=== PATIENT | male | born 1940 | race Caucasian/White ===

== ENCOUNTER 2022-06-09 10:54 | Inpatient (IN) ==
[2022-06-09] MEDS ORDERED: NS 1,000 ML IV 1,000 ML IV SCH (11:23)
[2022-06-09] MEDS ORDERED: DOPAMINE IV PREMIX 400 MG/250 ML 400 MG/250 ML BAG IV PRN (11:39)
[2022-06-09] MEDS ORDERED: NS 1,000 ML IV 1,000 ML ONE (11:40)
[2022-06-09] MEDS ORDERED: DOPAMINE IV PREMIX 400 MG/250 ML 400 MG/250 ML BAG IV ONE (11:40)
[2022-06-09 12:04] VITALS: BMI 27.4
[2022-06-09 12:24] LABS: BASOPHILS # (AUTO) 0.1 X10^3/uL (0.0-0.1); BASOPHILS % (AUTO) 0.6 % (0.2-1.0); EOSINOPHILS # (AUTO) 0.1 x10^3/uL (0.0-0.2); EOSINOPHILS % (AUTO) 0.3 % (0.9-2.9); HEMATOCRIT 43.6 % (42.0-54.0); HEMOGLOBIN 14.5 g/dL (13.5-18.0); LYMPHOCYTES # (AUTO) 2.9 X10^3/uL (1.3-2.9); LYMPHOCYTES % (AUTO) 11.9 % (21.0-51.0); MEAN CORPUSCULAR HEMOGLOBIN 30.1 pg (27.0-34.0); MEAN CORPUSCULAR HGB CONC 33.2 g/dL (33.0-35.0); MEAN CORPUSCULAR VOLUME 90.9 fL (80.0-100.0); MEAN PLATELET VOLUME 8.8 fL (7.4-11.0); MONOCYTES # (AUTO) 2.7 x10^3/uL (0.3-0.8); NEUTROPHILS # (AUTO) 18.3 x10^3/uL (2.2-4.8); NEUTROPHILS % (AUTO) 76.2 % (42.0-75.0); WHITE BLOOD COUNT 24.1 X10^3/uL (3.6-10.0)
[2022-06-09 12:37] LABS: VALPROIC ACID 32.8 ug/mL (50-100)
[2022-06-09 12:38] LABS: BAND NEUTROPHILS % 3 % (0-10)
[2022-06-09 12:39] LABS: PLATELET MORPHOLOGY COMMENT NORMAL (NORMAL)
[2022-06-09 12:41] LABS: LACTIC ACID 1.9 mmol/L (0.4-2.0)
[2022-06-09 12:49] LABS: BILIRUBIN,URINE 1+ (NEGATIVE); BLOOD/HEMOGLOBIN,URINE 1+ (NEGATIVE); GLUCOSE, URINE NEGATIVE (NEGATIVE); KETONES,URINE 1+ (NEGATIVE); LEUKOCYTE ESTERASE ,URINE 1+ (NEGATIVE); NITRITES,URINE NEGATIVE (NEGATIVE); PROTEIN,URINE 2+ (NEGATIVE); UROBILINOGEN,URINE 1+ (NORMAL)
[2022-06-09 12:55] LABS: APPEARANCE,URINE SLIGHTLY HAZY (CLEAR); BACTERIA,URINE 1+ /HPF (NEGATIVE); COLOR,URINE AMBER (YELLOW); HYALINE CASTS, URINE MODERATE /LPF (NEGATIVE); RBC,URINE 0-2 /HPF (0-3); SQUAMOUS EPITHELIAL CELL,UR FEW /HPF (NEGATIVE)
[2022-06-09 12:57] LABS: ALANINE AMINOTRANSFERASE 49 Units/L (12-78); ALBUMIN 2.4 g/dL (3.4-5.0); ALKALINE PHOSPHATASE 153 Units/L (46-116); ASPARTATE AMINO TRANSFERASE 70 Units/L (15-37); BLOOD UREA NITROGEN 127 mg/dL (7-18); CALCIUM 9.4 mg/dL (8.5-10.1); CARBON DIOXIDE 26.1 mmol/L (21-32); COR CA(FOR HYPOALB) 10.7 mg/dL (8.5-10.1); CREATININE 4.43 mg/dL (0.70-1.30); TOTAL PROTEIN 7.6 g/dL (6.4-8.2); eGFR NON BLACK RACES 14 (>60)
[2022-06-09 13:03] LABS: CHLORIDE 122 mmol/L (98-107); SODIUM 163 mmol/L (136-145)
[2022-06-09] MEDS ORDERED: D5W 1,000 ML IV 1,000 ML IV ONE (13:12)
[2022-06-09] MEDS: D5W 1,000 ML IV 1,000 ML IV SCH ×2 (13:25→18:00)
[2022-06-09] MEDS: LEVOPHED 8 MG/250 ML IV *PREMIX 8 MG/250 ML PLAST..BAG IV PRN (13:26)
[2022-06-09] MEDS: MERREM VIAL 500 MG in D5W 100 ML IV 100 ML IV SCH ×2 (13:49→20:17)
[2022-06-09] MEDS ORDERED: LEVAQUIN PREMIX IV 750 MG 750 MG/150 ML BAG IV ONE (14:00)
--- NOTE | 2022-06-09 18:19 | RAD ---
HISTORYHypotensionSTUDYAP [id number]/28/2022, March 03, 2022FINDINGSThere is an indistinct area of parenchymal density in the left lower lobe which was not present on March 03, 2022. The heart and lungs are normal otherwise. There is no pleural fluid component.IMPRESSIONSmall focal area of infiltrate/pneumonia or atelectasis in the left lower lung.Electronically signed by: SHERIN ELIAS (Jun 09, 2022 18:16:58)
[2022-06-10] MEDS: D5W 1,000 ML IV 1,000 ML IV SCH ×5 (00:34→21:36)
[2022-06-10] MEDS: LEVOPHED 8 MG/250 ML IV *PREMIX 8 MG/250 ML PLAST..BAG IV PRN (01:41)
[2022-06-10 04:57] LABS: BASOPHILS # (AUTO) 0.1 X10^3/uL (0.0-0.1); BASOPHILS % (AUTO) 0.3 % (0.2-1.0); EOSINOPHILS # (AUTO) 0.1 x10^3/uL (0.0-0.2); EOSINOPHILS % (AUTO) 0.7 % (0.9-2.9); HEMATOCRIT 38.7 % (42.0-54.0); HEMOGLOBIN 12.9 g/dL (13.5-18.0); LYMPHOCYTES # (AUTO) 2.6 X10^3/uL (1.3-2.9); LYMPHOCYTES % (AUTO) 12.7 % (21.0-51.0); MEAN CORPUSCULAR HEMOGLOBIN 29.7 pg (27.0-34.0); MEAN CORPUSCULAR HGB CONC 33.2 g/dL (33.0-35.0); MEAN CORPUSCULAR VOLUME 89.6 fL (80.0-100.0); MEAN PLATELET VOLUME 8.7 fL (7.4-11.0); MONOCYTES # (AUTO) 2.6 x10^3/uL (0.3-0.8); MONOCYTES % (AUTO) 12.4 % (0.0-13.0); NEUTROPHILS # (AUTO) 15.3 x10^3/uL (2.2-4.8); NEUTROPHILS % (AUTO) 73.9 % (42.0-75.0); RED BLOOD COUNT 4.32 X10^6/uL (4.7-6.0); RED CELL DISTRIBUTION WIDTH 13.9 % (11.6-16.5); WHITE BLOOD COUNT 20.6 X10^3/uL (3.6-10.0)
[2022-06-10 05:03] LABS: CALCIUM 8.6 mg/dL (8.5-10.1); CARBON DIOXIDE 24.2 mmol/L (21-32); COR CA(FOR HYPOALB) 10.2 mg/dL (8.5-10.1); CREATININE 2.9 mg/dL (0.70-1.30); TOTAL PROTEIN 6.6 g/dL (6.4-8.2)
[2022-06-10] MEDS: MERREM VIAL 500 MG in D5W 100 ML IV 100 ML IV SCH ×2 (08:28→20:05)
--- NOTE | 2022-06-10 09:02 | DR.H&P ---
H&P History & Physical for Day of: H&P Date: 06/09/22 Chief Complaint Chief Complaint: Altered mental status Allergies Allergies Allergy/AdvReac Type Severity Reaction Status Date / Time No Known Drug Allergies Allergy Verified 03/03/22 17:00 History of Present Illness History of Present Illness: This is a 81-year-old white male who is a resident at [facility]. He is a patient of mine and is well-known to me. I was called about him 4 days ago from the alf when he had some kind of acute decompensation and it was reported that he has a bluish coloring in the right arm. Because of that we sent him to the emergency department for further work-up. I did a work-up and found that his white blood cell count was slightly over 20,000. They were unable to find any source of infection at that time. I had already previously started him on oral doxycycline because of the bad cough he had reported by the alf nurses. Patient was sent back to the alf in stable condition. He was already on the oral doxycycline so we kept him on it. The following day the patient was not doing well according to the alf nurses so I directed them to send him to the emergency department for further evaluation and treatment. Patient was not admitted Thursday afternoon to the hospital and his condition did not improve over the weekend. This morning the patient was brought to my office for examination I found that he was hypotensive with a blood pressure of 85/55. His heart rate was 88. We were unable to get a temperature or pulse ox on him today. His respirations were noted to be at 20. Because of this I direct admitted him to the ICU and started a sepsis work-up on him and routine labs and check cardiac enzymes and EKGs. Past Medical History Past Medical History: Alzheimers, Arthritis, COPD, Dementia, Depression and Diabetes Past Surgical History Surgical History: CABG/Valve Surgery Family History Family Medical History: CA and Coronary Artery Disease Social History Does patient currently use any type of tobacco product: No Have you used tobacco products in the last 12 months: Yes Type of Tobacco Use: Cigarettes Alcohol Use: None Drug Use: None Medications Home Medications: No Known Drug Allergies Allergy (Verified 03/03/22 17:00) CONTINUE taking the following medications albuterol sulfate 90 mcg/actuation aerosol inhaler (ProAir HFA) 2 puff inhalation BID 06/09/22 [History] divalproex 500 mg tablet,delayed release (Depakote) 500 mg PO BID 06/09/22 [History] donepezil 5 mg tablet 5 mg PO QHS 06/09/22 [History] doxycycline hyclate 100 mg tablet 100 mg PO BID 06/09/22 [History] fluticasone propionate 50 mcg/actuation nasal spray,suspension 1 spray intranasal QDAY 06/09/22 [History] lisinopril 5 mg tablet 5 mg PO QDAY 06/09/22 [History] loratadine 10 mg tablet (Claritin) 10 mg PO DAILY 06/09/22 [History] meclizine 25 mg tablet 25 mg PO QDAY 06/09/22 [History] melatonin 10 mg tablet 10 mg PO HS PRN 06/09/22 [History] meloxicam 7.5 mg tablet 7.5 mg PO QDAY 06/09/22 [History] olanzapine 15 mg tablet (Zyprexa) 15 mg PO QDAY 06/09/22 [History] sertraline 50 mg tablet (Zoloft) 50 mg PO QDAY 06/09/22 [History] Labs Result Diagrams: 06/10/22 04:14 06/10/22 04:14 Labs: Laboratory WBC 20.6 X10^3/uL (3.6-10.0) H 06/10/22 04:14 RBC 4.32 X10^6/uL (4.7-6.0) L 06/10/22 04:14 Hgb 12.9 g/dL (13.5-18.0) L 06/10/22 04:14 Hct 38.7 % (42.0-54.0) L 06/10/22 04:14 MCV 89.6 fL (80.0-100.0) 06/10/22 04:14 MCH 29.7 pg (27.0-34.0) 06/10/22 04:14 MCHC 33.2 g/dL (33.0-35.0) 06/10/22 04:14 RDW 13.9 % (11.6-16.5) 06/10/22 04:14 Plt Count 523 X10^3/uL (150.0-450.0) H 06/10/22 04:14 Plt Count Comment Increased (ADEQUATE) 06/09/22 12:05 MPV 8.7 fL (7.4-11.0) 06/10/22 04:14 Neut % (Auto) 73.9 % (42.0-75.0) 06/10/22 04:14 Lymph % (Auto) 12.7 % (21.0-51.0) L 06/10/22 04:14 [place] % (Auto) 12.4 % (0.0-13.0) 06/10/22 04:14 Eos % (Auto) 0.7 % (0.9-2.9) L 06/10/22 04:14 Baso % (Auto) 0.3 % (0.2-1.0) 06/10/22 04:14 Neut # (Auto) 15.3 x10^3/uL (2.2-4.8) H 06/10/22 04:14 Lymph # (Auto) 2.6 X10^3/uL (1.3-2.9) 06/10/22 04:14 [place] # (Auto) 2.6 x10^3/uL (0.3-0.8) H 06/10/22 04:14 Eos # (Auto) 0.1 x10^3/uL (0.0-0.2) 06/10/22 04:14 Baso # (Auto) 0.1 X10^3/uL (0.0-0.1) 06/10/22 04:14 Absolute Nucleated RBC 0.1 /100WBC 06/10/22 04:14 Total Counted 100 06/09/22 12:05 Neutrophils % (Manual) 81 % (39-76) H 06/09/22 12:05 Band Neutrophils % 3 % (0-10) 06/09/22 12:05 Lymphocytes % (Manual) 10 % (13-43) L 06/09/22 12:05 Monocytes % (Manual) 5 % (4-9) 06/09/22 12:05 Eosinophils % (Manual) 1 % (0-6) 06/09/22 12:05 Plt Morphology Comment Normal (NORMAL) 06/09/22 12:05 RBC Morphology Normal (NORMAL) 06/09/22 12:05 Sodium 154 mmol/L (136-145) H* 06/10/22 04:14 Corrected Sodium 155 mmol/L (136-145) H 06/10/22 04:14 Potassium 3.6 mmol/L (3.5-5.1) 06/10/22 04:14 Chloride 118 mmol/L (98-107) H* 06/10/22 04:14 Carbon Dioxide 24.2 mmol/L (21-32) 06/10/22 04:14 BUN 107 mg/dL (7-18) H 06/10/22 04:14 Creatinine 2.90 mg/dL (0.70-1.30) H 06/10/22 04:14 Est GFR (MDRD) Af Amer 27 (>60) L 06/10/22 04:14 Est GFR (MDRD) Non-Af 22 (>60) L 06/10/22 04:14 Glucose 143 mg/dL (65-99) H 06/10/22 04:14 Lactic Acid 1.9 mmol/L (0.4-2.0) 06/09/22 12:05 Calcium 8.6 mg/dL (8.5-10.1) 06/10/22 04:14 Corrected Calcium 10.2 mg/dL (8.5-10.1) H 06/10/22 04:14 Total Bilirubin 0.50 mg/dL (0.2-1.0) 06/10/22 04:14 AST 59 Units/L (15-37) H 06/10/22 04:14 ALT 40 Units/L (12-78) 06/10/22 04:14 Alkaline Phosphatase 139 Units/L (46-116) H 06/10/22 04:14 Creatine Kinase 777 Units/L (39-308) H 06/10/22 04:14 Troponin I High Sens 165.0 ng/L (4.0-60.0) H* 06/09/22 23:40 C-Reactive Protein 176.50 mg/L (0-3.0) H 06/10/22 04:14 B-Natriuretic Peptide 52.8 pg/mL (0-79) 06/10/22 04:14 Total Protein 6.6 g/dL (6.4-8.2) 06/10/22 04:14 Albumin 2.0 g/dL (3.4-5.0) L 06/10/22 04:14 Globulin 4.6 g/dL (2.5-4.5) H 06/10/22 04:14 Albumin/Globulin Ratio 0.4 Ratio (1.1-2.1) L 06/10/22 04:14 Specimen Type Catherized urine 06/09/22 12:15 Urine Color Valerie (YELLOW) 06/09/22 12:15 Urine Appearance Slightly hazy (CLEAR) 06/09/22 12:15 Urine pH 5.0 (5.0 - 8.0) 06/09/22 12:15 Ur Specific [place] 1.025 (1.000-1.030) 06/09/22 12:15 Urine Protein 2+ (NEGATIVE) 06/09/22 12:15 Urine Glucose (UA) Negative (NEGATIVE) 06/09/22 12:15 Urine Ketones 1+ (NEGATIVE) 06/09/22 12:15 Urine Blood 1+ (NEGATIVE) 06/09/22 12:15 Urine Nitrite Negative (NEGATIVE) 06/09/22 12:15 Urine Bilirubin 1+ (NEGATIVE) 06/09/22 12:15 Urine Urobilinogen 1+ (NORMAL) 06/09/22 12:15 Ur Leukocyte Esterase 1+ (NEGATIVE) 06/09/22 12:15 Urine RBC 0-2 /HPF (0-3) 06/09/22 12:15 Urine WBC 3-5 /HPF (0-5) 06/09/22 12:15 Ur Squamous Epith Cells Few /HPF (NEGATIVE) 06/09/22 12:15 Amorphous Sediment 1+ /HPF (NEGATIVE) 06/09/22 12:15 Urine Bacteria 1+ /HPF (NEGATIVE) 06/09/22 12:15 Hyaline Casts Moderate /LPF (NEGATIVE) 06/09/22 12:15 Ur Culture Indicated? Yes/culture set up 06/09/22 12:15 Valproic Acid 32.8 ug/mL (50-100) L 06/09/22 12:05 SARS-CoV-2 (PCR) Negative (NEGATIVE) 06/09/22 12:20 Influenza Type A (PCR) Negative (NEGATIVE) 06/09/22 12:20 Influenza Type B (PCR) Negative (NEGATIVE) 06/09/22 12:20 RSV (PCR) Negative (NEGATIVE) 06/09/22 12:20 Review of Systems Constitutional: No Symptoms Reported Eyes: No Symptoms Reported ENT: No Symptoms Reported Respiratory: Cough Cardiovascular: No Symptoms Reported Gastrointestinal: No Symptoms Reported Genitourinary: No Symptoms Reported Musculoskeletal: No Symptoms Reported Skin: Wound Neurological: No Symptoms Reported Physical Exam Vital Signs: Temperature 98.6 F Pulse Rate 97 Respiratory Rate 21 Blood Pressure [Right Arm] 109/57 Blood Pressure 115/56 O2 Sat by Pulse Oximetry 100 Oriented: Not Oriented Eyes: Normal Ear: Normal Nose: Normal Throat: Normal Respiratory: Rhonchi Throughout Cardiovascular: Normal : Normal Auscultation: Bowel Sounds: Normal Palpation: Normal Tenderness: Normal Skin: Decreased Turgur and Wound Musculoskeletal: Normal Psychiatric: Other Mood Description: Labile Affect: Flat Speech Pattern: Aphasic Assessment/Plan (1) Hypotension: Status: Acute Plan: I will start the patient on normal saline 125 cc an hour. Follow-up with CMP when available. (2) Leukocytosis: Status: Acute Plan: I will start the patient empirically on Levaquin and Zosyn IV. (3) Altered mental status: Qualifiers: Altered mental status type: transient alteration of awareness Qualified Code(s): R40.4 - Transient alteration of awareness Status: Acute Plan: Follow-up labs, chest x-ray and EKGs. (4) Alzheimer's dementia with behavioral disturbance: Status: Acute (5) COPD (chronic obstructive pulmonary disease): Status: Acute (6) Diabetes mellitus type 2 in nonobese: Status: Acute Plan: Sliding scale regular insulin per protocol. (7) Coronary artery disease: Status: Acute (8) History of CVA (cerebrovascular accident): Status: Acute (9) Dyslipidemia: Status: Acute (10) GERD (gastroesophageal reflux disease): Status: Acute (11) History of essential hypertension: Status: Acute Plan: Monitor blood pressure/heart rate. (12) Arthritis: Status: Acute (13) Cognitive communication deficit: Status: Acute (14) BPH (benign prostatic hyperplasia): Status: Acute Review H&P Reviewed: Yes Patient was examined?: Yes
--- NOTE | 2022-06-10 10:21 | PCM.PROG ---
Progress Note Progress Note for Day of Date of Exam: 06/10/22 Subjective Subjective: After the patient was admitted yesterday he was still hypotensive and his blood pressure started decreasing. I started him on a dopamine drip per protocol and waiting on his labs to come back. We had end up going up to the max dose of dopamine was labs are pending and once it came back showed a creatinine of nearly 4.5. Also his sodium was found to be 163. I change his IV fluid from normal saline to D5W at 125 cc an hour. We stopped the dopamine after his blood pressure remained low and his heart rate went up and changed to Levophed. While he was on Levophed we ended up having to max it out as well with a blood pressure in the 60s to 70s over 50s so gave him a bolus of D5W 500 cc and his blood pressure and heart rate responded to that appropriately. After that I gave him another 500 cc bolus of D5W and his heart rate came down under 100 and his blood pressure has since come up to over 100 systolic and over 70s diastolic. He received fluids through the night and 125 cc an hour of D5W. I stopped his IV Zosyn because has a large amount of sodium minds and changed to meropenem and continue him on Levaquin. ID consult pharmacy for renal dosing while we are awaiting blood cultures and chest x-ray to return. His chest x-ray did come back showing a left lower lobe infiltrate consistent with a pneumonia. The nurses found some skin tears on his body and they collected those as well some did have some minor drainage. Currently I am holding all his p.o. medications as he is not responsive enough to take him. Also noted his troponins have slightly been trending up but given his renal status that will be falsely elevated as he is not clearing them appropriately. He does have some inferior ischemic changes on his EKG. I do not see any ST elevation that would indicate an acute AR. I will consult Dr. Alexander to see him tomorrow so he can evaluate his EKGs and to see if he thinks he needs an expedited cardiac work-up while we are treating his acute dehydration, hypernatremia and pneumonia. Also noted he does have small positive leukocyte esterase in the urine and we will follow-up the culture when it comes back as well. Greater than 45 minutes was spent with the patient this morning. Past Medical Family Social History Allergies: Allergies No Known Drug Allergies Allergy (Verified 03/03/22 17:00) Review of Systems ROS: No change since H&P Vital Signs and I&O's Vital Signs: Temperature 98.6 F Pulse Rate 100 Respiratory Rate 22 Blood Pressure [Right Arm] 109/57 Blood Pressure 151/90 O2 Sat by Pulse Oximetry 98 Intake and Output: Intake & Output 06/07/22 06/08/22 06/09/22 06/10/22 11:59 11:59 11:59 11:59 Intake Total 3039 / 3039 Output Total 1275 / 1275 Balance 1764 / 1764 Physical Exam Oriented: Not Oriented Eyes: Normal Ear: Normal Nose: Normal Throat: Normal Respiratory: Right, Left and Rhonchi Cardiovascular: Normal : Normal Auscultation: Bowel Sounds: Normal Tenderness: Normal Skin: Decreased Turgur and Wound Musculoskeletal: Normal Psychiatric: Other Mood Description: Labile Affect: Flat Speech Pattern: Aphasic Laboratory and Diagnostics Result Diagrams: 06/10/22 04:14 06/10/22 04:14 Labs: Laboratory WBC 20.6 X10^3/uL (3.6-10.0) H 06/10/22 04:14 RBC 4.32 X10^6/uL (4.7-6.0) L 06/10/22 04:14 Hgb 12.9 g/dL (13.5-18.0) L 06/10/22 04:14 Hct 38.7 % (42.0-54.0) L 06/10/22 04:14 MCV 89.6 fL (80.0-100.0) 06/10/22 04:14 MCH 29.7 pg (27.0-34.0) 06/10/22 04:14 MCHC 33.2 g/dL (33.0-35.0) 06/10/22 04:14 RDW 13.9 % (11.6-16.5) 06/10/22 04:14 Plt Count 523 X10^3/uL (150.0-450.0) H 06/10/22 04:14 Plt Count Comment Increased (ADEQUATE) 06/09/22 12:05 MPV 8.7 fL (7.4-11.0) 06/10/22 04:14 Neut % (Auto) 73.9 % (42.0-75.0) 06/10/22 04:14 Lymph % (Auto) 12.7 % (21.0-51.0) L 06/10/22 04:14 [place] % (Auto) 12.4 % (0.0-13.0) 06/10/22 04:14 Eos % (Auto) 0.7 % (0.9-2.9) L 06/10/22 04:14 Baso % (Auto) 0.3 % (0.2-1.0) 06/10/22 04:14 Neut # (Auto) 15.3 x10^3/uL (2.2-4.8) H 06/10/22 04:14 Lymph # (Auto) 2.6 X10^3/uL (1.3-2.9) 06/10/22 04:14 [place] # (Auto) 2.6 x10^3/uL (0.3-0.8) H 06/10/22 04:14 Eos # (Auto) 0.1 x10^3/uL (0.0-0.2) 06/10/22 04:14 Baso # (Auto) 0.1 X10^3/uL (0.0-0.1) 06/10/22 04:14 Absolute Nucleated RBC 0.1 /100WBC 06/10/22 04:14 Total Counted 100 06/09/22 12:05 Neutrophils % (Manual) 81 % (39-76) H 06/09/22 12:05 Band Neutrophils % 3 % (0-10) 06/09/22 12:05 Lymphocytes % (Manual) 10 % (13-43) L 06/09/22 12:05 Monocytes % (Manual) 5 % (4-9) 06/09/22 12:05 Eosinophils % (Manual) 1 % (0-6) 06/09/22 12:05 Plt Morphology Comment Normal (NORMAL) 06/09/22 12:05 RBC Morphology Normal (NORMAL) 06/09/22 12:05 Sodium 154 mmol/L (136-145) H* 06/10/22 04:14 Corrected Sodium 155 mmol/L (136-145) H 06/10/22 04:14 Potassium 3.6 mmol/L (3.5-5.1) 06/10/22 04:14 Chloride 118 mmol/L (98-107) H* 06/10/22 04:14 Carbon Dioxide 24.2 mmol/L (21-32) 06/10/22 04:14 BUN 107 mg/dL (7-18) H 06/10/22 04:14 Creatinine 2.90 mg/dL (0.70-1.30) H 06/10/22 04:14 Est GFR (MDRD) Af Amer 27 (>60) L 06/10/22 04:14 Est GFR (MDRD) Non-Af 22 (>60) L 06/10/22 04:14 Glucose 143 mg/dL (65-99) H 06/10/22 04:14 Lactic Acid 1.9 mmol/L (0.4-2.0) 06/09/22 12:05 Calcium 8.6 mg/dL (8.5-10.1) 06/10/22 04:14 Corrected Calcium 10.2 mg/dL (8.5-10.1) H 06/10/22 04:14 Total Bilirubin 0.50 mg/dL (0.2-1.0) 06/10/22 04:14 AST 59 Units/L (15-37) H 06/10/22 04:14 ALT 40 Units/L (12-78) 06/10/22 04:14 Alkaline Phosphatase 139 Units/L (46-116) H 06/10/22 04:14 Creatine Kinase 777 Units/L (39-308) H 06/10/22 04:14 Troponin I High Sens 165.0 ng/L (4.0-60.0) H* 06/09/22 23:40 C-Reactive Protein 176.50 mg/L (0-3.0) H 06/10/22 04:14 B-Natriuretic Peptide 52.8 pg/mL (0-79) 06/10/22 04:14 Total Protein 6.6 g/dL (6.4-8.2) 06/10/22 04:14 Albumin 2.0 g/dL (3.4-5.0) L 06/10/22 04:14 Globulin 4.6 g/dL (2.5-4.5) H 06/10/22 04:14 Albumin/Globulin Ratio 0.4 Ratio (1.1-2.1) L 06/10/22 04:14 Specimen Type Catherized urine 06/09/22 12:15 Urine Color Valerie (YELLOW) 06/09/22 12:15 Urine Appearance Slightly hazy (CLEAR) 06/09/22 12:15 Urine pH 5.0 (5.0 - 8.0) 06/09/22 12:15 Ur Specific [place] 1.025 (1.000-1.030) 06/09/22 12:15 Urine Protein 2+ (NEGATIVE) 06/09/22 12:15 Urine Glucose (UA) Negative (NEGATIVE) 06/09/22 12:15 Urine Ketones 1+ (NEGATIVE) 06/09/22 12:15 Urine Blood 1+ (NEGATIVE) 06/09/22 12:15 Urine Nitrite Negative (NEGATIVE) 06/09/22 12:15 Urine Bilirubin 1+ (NEGATIVE) 06/09/22 12:15 Urine Urobilinogen 1+ (NORMAL) 06/09/22 12:15 Ur Leukocyte Esterase 1+ (NEGATIVE) 06/09/22 12:15 Urine RBC 0-2 /HPF (0-3) 06/09/22 12:15 Urine WBC 3-5 /HPF (0-5) 06/09/22 12:15 Ur Squamous Epith Cells Few /HPF (NEGATIVE) 06/09/22 12:15 Amorphous Sediment 1+ /HPF (NEGATIVE) 06/09/22 12:15 Urine Bacteria 1+ /HPF (NEGATIVE) 06/09/22 12:15 Hyaline Casts Moderate /LPF (NEGATIVE) 06/09/22 12:15 Ur Culture Indicated? Yes/culture set up 06/09/22 12:15 Valproic Acid 32.8 ug/mL (50-100) L 06/09/22 12:05 SARS-CoV-2 (PCR) Negative (NEGATIVE) 06/09/22 12:20 Influenza Type A (PCR) Negative (NEGATIVE) 06/09/22 12:20 Influenza Type B (PCR) Negative (NEGATIVE) 06/09/22 12:20 RSV (PCR) Negative (NEGATIVE) 06/09/22 12:20 Radiology Reviewed: Yes EKG Reviewed: Yes Compared to prior EKG Dated: 06/09/22 Rate: 90 Rhythm: NSR ST: Inf and Ischemia Plan (1) Left lower lobe pneumonia: Status: Acute Plan: Of the meropenem and IV Levaquin. Renally dosed per pharmacy. Follow-up sputum and blood cultures when available. (2) Hypotension: Status: Acute Narrative Support Text: The patient's blood pressure has been coming up he has been titrated down off the maximum amount of Levophed since last night and we will continue to titrated off as tolerated by the patient. We will try to keep his blood pressure 110/70 before stopping the Levophed. Plan: Taper off Levophed drip per protocol. Try to maintain blood pressure 110/70. (3) Urinary tract infection: Status: Acute Plan: Continue IV meropenem and IV Levaquin renally dosed per pharmacy. Follow-up with urine culture and sensitivity when available. (4) Abnormal EKG: Status: Acute Narrative Support Text: The patient has inferior his hemic EKG changes with ST depression. Also noted to have elevated high-sensitivity troponin levels as well. I suspect the troponins are falsely elevated given his renal clearance at this time. Plan: Consult cardiology, Dr. Alexander tomorrow when he is available. (5) Cardiac enzymes elevated: Status: Acute Plan: Cardiology consultation with Dr. Alexander in the morning. I am also going to start the patient on heparin drip per protocol given his elevated cardi ac enzymes. (6) Leukocytosis: Status: Acute Narrative Support Text: Suspect the leukocytosis the patient has is from left lower lobe pneumonia. We will continue him on IV antibiotics which are Levaquin and Merrem. Plan: Continue IV meropenem and Levaquin per pharmacy. (7) Altered mental status: Status: Acute Qualifiers: Altered mental status type: transient alteration of awareness Qualified Code(s): R40.4 - Transient alteration of awareness Plan: Monitor for improvement. 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 (9) COPD (chronic obstructive pulmonary disease): Status: Acute (10) Diabetes mellitus type 2 in nonobese: Status: Acute Plan: Sliding scale regular insulin per protocol. (11) Coronary artery disease: Status: Acute Plan: I will consult Dr. Alexander, cardiology when he is available tomorrow. (12) History of CVA (cerebrovascular accident): Status: Acute (13) Dyslipidemia: Status: Acute (14) GERD (gastroesophageal reflux disease): Status: Acute (15) History of essential hypertension: Status: Acute Plan: Monitor blood pressure/heart rate. (16) Arthritis: Status: Acute (17) Cognitive communication deficit: Status: Acute (18) BPH (benign prostatic hyperplasia): Status: Acute (19) Vertigo: Status: Active
[2022-06-10] MEDS: PROTONIX INJ 40 MG VIAL IVP SCH ×2 (12:39→20:07)
[2022-06-10] MEDS: ZyPREXA TAB 5 MG PO SCH (20:06)
[2022-06-10] MEDS: ZOLOFT PO SCH (20:07)
[2022-06-10] MEDS: DEPAKOTE D.R. TAB PO SCH (20:08)
[2022-06-10] MEDS ORDERED: DEPAKOTE D.R. TAB PO ONE (20:08)
[2022-06-10] MEDS ORDERED: MELATONIN PO PRN (20:09)
[2022-06-10] MEDS: HEPARIN SODIUM IN D5W 25,000 UNITS/500 ML BAG IV PRN (20:14)
[2022-06-10] MEDS ORDERED: HEPARIN SODIUM INJ 5000 UNITS IVP ONE (20:19)
[2022-06-10] MEDS: VALIUM INJ IVP PRN (22:42)
[2022-06-11 02:27] LABS: BASOPHILS # (AUTO) 0.2 X10^3/uL (0.0-0.1); BASOPHILS % (AUTO) 0.8 % (0.2-1.0); EOSINOPHILS # (AUTO) 0.3 x10^3/uL (0.0-0.2); EOSINOPHILS % (AUTO) 1.7 % (0.9-2.9); HEMATOCRIT 39.2 % (42.0-54.0); HEMOGLOBIN 13.3 g/dL (13.5-18.0); LYMPHOCYTES # (AUTO) 2.8 X10^3/uL (1.3-2.9); LYMPHOCYTES % (AUTO) 14.2 % (21.0-51.0); MEAN CORPUSCULAR HEMOGLOBIN 30.3 pg (27.0-34.0); MEAN CORPUSCULAR HGB CONC 33.8 g/dL (33.0-35.0); MEAN CORPUSCULAR VOLUME 89.5 fL (80.0-100.0); MEAN PLATELET VOLUME 8.9 fL (7.4-11.0); MONOCYTES # (AUTO) 2.1 x10^3/uL (0.3-0.8); MONOCYTES % (AUTO) 10.9 % (0.0-13.0); NEUTROPHILS # (AUTO) 14.1 x10^3/uL (2.2-4.8); NEUTROPHILS % (AUTO) 72.4 % (42.0-75.0); RED BLOOD COUNT 4.38 X10^6/uL (4.7-6.0); RED CELL DISTRIBUTION WIDTH 13.6 % (11.6-16.5); WHITE BLOOD COUNT 19.6 X10^3/uL (3.6-10.0)
[2022-06-11 02:32] LABS: CALCIUM 8.5 mg/dL (8.5-10.1); CARBON DIOXIDE 23.5 mmol/L (21-32); COR CA(FOR HYPOALB) 10.1 mg/dL (8.5-10.1); CREATININE 1.74 mg/dL (0.70-1.30); TOTAL PROTEIN 6.5 g/dL (6.4-8.2)
[2022-06-11] MEDS ORDERED: HEPARIN SODIUM INJ 5000 UNITS IVP ONE (02:36)
[2022-06-11] MEDS ORDERED: HEPARIN SODIUM INJ 5000 UNITS ONE (02:47)
[2022-06-11] MEDS: D5W 1,000 ML IV 1,000 ML IV SCH ×3 (05:05→17:20)
[2022-06-11] MEDS ORDERED: DEPAKOTE D.R. TAB PO ONE ×2 (08:19→19:02)
[2022-06-11] MEDS: MERREM VIAL 1 G in NS 100 ML IV 100 ML IV SCH ×2 (08:25→20:02)
[2022-06-11] MEDS: PROTONIX INJ 40 MG VIAL IVP SCH ×2 (08:25→20:03)
[2022-06-11] MEDS: ZyPREXA TAB 5 MG PO SCH (09:04)
[2022-06-11] MEDS: DEPAKOTE D.R. TAB PO SCH ×2 (09:04→20:04)
[2022-06-11] MEDS: ZOLOFT PO SCH (09:04)
[2022-06-11] MEDS: VALIUM INJ IVP PRN (09:44)
[2022-06-11] MEDS: VIBRAMYCIN 100 MG in D5W 250 ML IV 250 ML IV SCH ×2 (09:55→20:03)
[2022-06-11] MEDS: NYSTATIN SUSP PO SCH ×3 (13:51→20:03)
[2022-06-11] MEDS ORDERED: LEVAQUIN PREMIX IV 750 MG 750 MG/150 ML BAG IV SCH (14:00)
[2022-06-11] MEDS ORDERED: LEVAQUIN PREMIX IV 500 MG 500 MG/100 ML BAG IV SCH (14:00)
--- NOTE | 2022-06-11 16:08 | PCM.PROG ---
Progress Note Progress Note for Day of Date of Exam: 06/11/22 Subjective Subjective: This morning the patient is more alert. Yesterday afternoon he was becoming more drowsy according to the nurses. I did order him as needed Valium as needed and restarted his Zyprexa as well. His white blood cell count has decreased to just over 19,000 this morning which has come down since admission. 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 I will go ahead and add doxycycline 100 mg IV every 12 hours and we will go ahead and stop his Levaquin. [employer]ator Dr. Alexander saw the patient today and reviewed the EKGs and troponins and saw that he had a cardiac work-up not too long ago and he did not need another one at this time. In the meantime we will continue current course of treatment and continue to wean him off the Levophed as his blood pressure tolerates it. We will plan on changing him over to oral antibiotics soon as he is able to take food and medication by mouth again and discharge him back to the halfway in a day or so. Past Medical Family Social History Allergies: Allergies No Known Drug Allergies Allergy (Verified 03/03/22 17:00) Review of Systems ROS: No change since H&P Vital Signs and I&O's Vital Signs: Temperature 97.7 F Pulse Rate 83 Respiratory Rate 15 Blood Pressure [Right Arm] 109/57 Blood Pressure 141/65 O2 Sat by Pulse Oximetry 100 Intake and Output: Intake & Output 06/09/22 06/10/22 06/11/22 06/12/22 11:59 11:59 11:59 11:59 Intake Total 3039 / 3039 3571 / 3571 1574 / 1574 Output Total 1275 / 1275 950 / 950 650 / 650 Balance 1764 / 1764 2621 / 2621 924 / 924 Physical Exam Oriented: Not Oriented Eyes: Normal Ear: Normal Nose: Normal Throat: Normal Respiratory: Right, Left and Rhonchi Cardiovascular: Normal : Normal Auscultation: Bowel Sounds: Normal Tenderness: Normal Skin: Decreased Turgur and Wound Musculoskeletal: Normal Psychiatric: Other Mood Description: Labile Affect: Flat Speech Pattern: Aphasic Laboratory and Diagnostics Result Diagrams: 06/11/22 02:02 06/11/22 02:02 Labs: 06/09/22 11:47 Blood Blood Culture - Preliminary 06/09/22 12:05 Blood Blood Culture - Preliminary 06/09/22 12:15 Urine,Catheterized Urine Culture - Final 06/09/22 11:50 Drainage Wound Culture - Final Methicillin Resis Staph Aureus 06/09/22 11:50 Drainage Wound Culture - Final Methicillin Resis Staph Aureus Laboratory WBC 19.6 X10^3/uL (3.6-10.0) H 06/11/22 02:02 RBC 4.38 X10^6/uL (4.7-6.0) L 06/11/22 02:02 Hgb 13.3 g/dL (13.5-18.0) L 06/11/22 02:02 Hct 39.2 % (42.0-54.0) L 06/11/22 02:02 MCV 89.5 fL (80.0-100.0) 06/11/22 02:02 MCH 30.3 pg (27.0-34.0) 06/11/22 02:02 MCHC 33.8 g/dL (33.0-35.0) 06/11/22 02:02 RDW 13.6 % (11.6-16.5) 06/11/22 02:02 Plt Count 459 X10^3/uL (150.0-450.0) H 06/11/22 02:02 Plt Count Comment Increased (ADEQUATE) 06/09/22 12:05 MPV 8.9 fL (7.4-11.0) 06/11/22 02:02 Neut % (Auto) 72.4 % (42.0-75.0) 06/11/22 02:02 Lymph % (Auto) 14.2 % (21.0-51.0) L 06/11/22 02:02 [place] % (Auto) 10.9 % (0.0-13.0) 06/11/22 02:02 Eos % (Auto) 1.7 % (0.9-2.9) 06/11/22 02:02 Baso % (Auto) 0.8 % (0.2-1.0) 06/11/22 02:02 Neut # (Auto) 14.1 x10^3/uL (2.2-4.8) H 06/11/22 02:02 Lymph # (Auto) 2.8 X10^3/uL (1.3-2.9) 06/11/22 02:02 [place] # (Auto) 2.1 x10^3/uL (0.3-0.8) H 06/11/22 02:02 Eos # (Auto) 0.3 x10^3/uL (0.0-0.2) H 06/11/22 02:02 Baso # (Auto) 0.2 X10^3/uL (0.0-0.1) H 06/11/22 02:02 Absolute Nucleated RBC 0.1 /100WBC 06/11/22 02:02 Total Counted 100 06/09/22 12:05 Neutrophils % (Manual) 81 % (39-76) H 06/09/22 12:05 Band Neutrophils % 3 % (0-10) 06/09/22 12:05 Lymphocytes % (Manual) 10 % (13-43) L 06/09/22 12:05 Monocytes % (Manual) 5 % (4-9) 06/09/22 12:05 Eosinophils % (Manual) 1 % (0-6) 06/09/22 12:05 Plt Morphology Comment Normal (NORMAL) 06/09/22 12:05 RBC Morphology Normal (NORMAL) 06/09/22 12:05 APTT 128.4 SECONDS (22.9-36.5) H 06/11/22 09:10 PTT Comment - 06/11/22 09:10 Sodium 149 mmol/L (136-145) H 06/11/22 02:02 Corrected Sodium 150 mmol/L (136-145) H 06/11/22 02:02 Potassium 3.7 mmol/L (3.5-5.1) 06/11/22 02:02 Chloride 116 mmol/L (98-107) H* 06/11/22 02:02 Carbon Dioxide 23.5 mmol/L (21-32) 06/11/22 02:02 BUN 65 mg/dL (7-18) H 06/11/22 02:02 Creatinine 1.74 mg/dL (0.70-1.30) H 06/11/22 02:02 Est GFR (MDRD) Af Amer 49 (>60) L 06/11/22 02:02 Est GFR (MDRD) Non-Af 40 (>60) L 06/11/22 02:02 Glucose 131 mg/dL (65-99) H 06/11/22 02:02 Lactic Acid 1.9 mmol/L (0.4-2.0) 06/09/22 12:05 Calcium 8.5 mg/dL (8.5-10.1) 06/11/22 02:02 Corrected Calcium 10.1 mg/dL (8.5-10.1) 06/11/22 02:02 Total Bilirubin 0.60 mg/dL (0.2-1.0) 06/11/22 02:02 AST 54 Units/L (15-37) H 06/11/22 02:02 ALT 36 Units/L (12-78) 06/11/22 02:02 Alkaline Phosphatase 152 Units/L (46-116) H 06/11/22 02:02 Creatine Kinase 777 Units/L (39-308) H 06/10/22 04:14 Troponin I High Sens 41.5 ng/L (4.0-60.0) 06/11/22 14:38 C-Reactive Protein 176.50 mg/L (0-3.0) H 06/10/22 04:14 B-Natriuretic Peptide 52.8 pg/mL (0-79) 06/10/22 04:14 Total Protein 6.5 g/dL (6.4-8.2) 06/11/22 02:02 Albumin 2.0 g/dL (3.4-5.0) L 06/11/22 02:02 Globulin 4.5 g/dL (2.5-4.5) 06/11/22 02:02 Albumin/Globulin Ratio 0.4 Ratio (1.1-2.1) L 06/11/22 02:02 Specimen Type Catherized urine 06/09/22 12:15 Urine Color [place] (YELLOW) 06/09/22 12:15 Urine Appearance Slightly hazy (CLEAR) 06/09/22 12:15 Urine pH 5.0 (5.0 - 8.0) 06/09/22 12:15 Ur Specific [place] 1.025 (1.000-1.030) 06/09/22 12:15 Urine Protein 2+ (NEGATIVE) 06/09/22 12:15 Urine Glucose (UA) Negative (NEGATIVE) 06/09/22 12:15 Urine Ketones 1+ (NEGATIVE) 06/09/22 12:15 Urine Blood 1+ (NEGATIVE) 06/09/22 12:15 Urine Nitrite Negative (NEGATIVE) 06/09/22 12:15 Urine Bilirubin 1+ (NEGATIVE) 06/09/22 12:15 Urine Urobilinogen 1+ (NORMAL) 06/09/22 12:15 Ur Leukocyte Esterase 1+ (NEGATIVE) 06/09/22 12:15 Urine RBC 0-2 /HPF (0-3) 06/09/22 12:15 Urine WBC 3-5 /HPF (0-5) 06/09/22 12:15 Ur Squamous Epith Cells Few /HPF (NEGATIVE) 06/09/22 12:15 Amorphous Sediment 1+ /HPF (NEGATIVE) 06/09/22 12:15 Urine Bacteria 1+ /HPF (NEGATIVE) 06/09/22 12:15 Hyaline Casts Moderate /LPF (NEGATIVE) 06/09/22 12:15 Ur Culture Indicated? Yes/culture set up 06/09/22 12:15 Valproic Acid 32.8 ug/mL (50-100) L 06/09/22 12:05 SARS-CoV-2 (PCR) Negative (NEGATIVE) 06/09/22 12:20 Influenza Type A (PCR) Negative (NEGATIVE) 06/09/22 12:20 Influenza Type B (PCR) Negative (NEGATIVE) 06/09/22 12:20 RSV (PCR) Negative (NEGATIVE) 06/09/22 12:20 Plan (1) Left lower lobe pneumonia: Status: Acute Plan: Continue meropenem and DC Levaquin today as the patient has intermediate resistance from MRSA on the wound culture. Renally dosed per pharmacy. Follow-up sputum and blood cultures when available. I am adding doxycycline 100 mg IV every 12 hours. (2) Hypotension: Status: Acute Plan: Taper off Levophed drip per protocol. Try to maintain blood pressure 110/70. (3) Urinary tract infection: Status: Acute Plan: Continue IV meropenem and IV Vibramycin. Follow-up with urine culture and sensitivity when available. (4) Abnormal EKG: Status: Acute Plan: Consult cardiology, Dr. Alexander tomorrow when he is available. (5) Cardiac enzymes elevated: Status: Acute Narrative Support Text: Cardiology saw the patient this morning they do not recommend a current work-up regarding his cardiac status. Plan: I will continue heparin drip protocol at this time. (6) Leukocytosis: Status: Acute Plan: Continue IV Merrem and discontinue Levaquin and I will start IV Vibramycin. (7) Altered mental status: Status: Acute Qualifiers: Altered mental status type: transient alteration of awareness Qualified Code(s): R40.4 - Transient alteration of awareness Plan: Monitor for improvement. 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 (9) COPD (chronic obstructive pulmonary disease): Status: Acute (10) Diabetes mellitus type 2 in nonobese: Status: Acute Plan: Sliding scale regular insulin per protocol. (11) Coronary artery disease: Status: Acute Plan: I will consult Dr. Alexander, cardiology when he is available tomorrow. (12) History of CVA (cerebrovascular accident): Status: Acute (13) Dyslipidemia: Status: Acute (14) GERD (gastroesophageal reflux disease): Status: Acute (15) History of essential hypertension: Status: Acute Plan: Monitor blood pressure/heart rate. (16) Arthritis: Status: Acute (17) Cognitive communication deficit: Status: Acute (18) BPH (benign prostatic hyperplasia): Status: Acute (19) Vertigo: Status: Active
[2022-06-11] MEDS: HEPARIN SODIUM IN D5W 25,000 UNITS/500 ML BAG IV PRN (23:40)
[2022-06-12] MEDS: LEVOPHED 8 MG/250 ML IV *PREMIX 8 MG/250 ML PLAST..BAG IV PRN (02:00)
[2022-06-12] MEDS: D5W 1,000 ML IV 1,000 ML IV SCH ×5 (02:22→22:24)
[2022-06-12 05:52] LABS: BASOPHILS # (AUTO) 0.2 X10^3/uL (0.0-0.1); EOSINOPHILS # (AUTO) 0.4 x10^3/uL (0.0-0.2); EOSINOPHILS % (AUTO) 1.9 % (0.9-2.9); HEMATOCRIT 38.2 % (42.0-54.0); HEMOGLOBIN 12.5 g/dL (13.5-18.0); LYMPHOCYTES # (AUTO) 2.7 X10^3/uL (1.3-2.9); LYMPHOCYTES % (AUTO) 13.4 % (21.0-51.0); MEAN CORPUSCULAR HEMOGLOBIN 29.5 pg (27.0-34.0); MEAN CORPUSCULAR HGB CONC 32.9 g/dL (33.0-35.0); MEAN CORPUSCULAR VOLUME 89.8 fL (80.0-100.0); MEAN PLATELET VOLUME 8.4 fL (7.4-11.0); MONOCYTES # (AUTO) 2.4 x10^3/uL (0.3-0.8); MONOCYTES % (AUTO) 11.6 % (0.0-13.0); NEUTROPHILS # (AUTO) 14.7 x10^3/uL (2.2-4.8); NEUTROPHILS % (AUTO) 72.1 % (42.0-75.0); RED BLOOD COUNT 4.25 X10^6/uL (4.7-6.0); RED CELL DISTRIBUTION WIDTH 13.4 % (11.6-16.5); WHITE BLOOD COUNT 20.4 X10^3/uL (3.6-10.0)
[2022-06-12 06:03] LABS: ALANINE AMINOTRANSFERASE 32 Units/L (12-78); ALBUMIN 1.8 g/dL (3.4-5.0); ALKALINE PHOSPHATASE 162 Units/L (46-116); ASPARTATE AMINO TRANSFERASE 42 Units/L (15-37); BLOOD UREA NITROGEN 36 mg/dL (7-18); CALCIUM 8.5 mg/dL (8.5-10.1); CARBON DIOXIDE 25.1 mmol/L (21-32); CHLORIDE 112 mmol/L (98-107); COR CA(FOR HYPOALB) 10.3 mg/dL (8.5-10.1); COR NA(FOR HYPERGLY) 147 mmol/L (136-145); SODIUM 146 mmol/L (136-145); TOTAL PROTEIN 6.1 g/dL (6.4-8.2); eGFR NON BLACK RACES 57 (>60)
[2022-06-12] MEDS ORDERED: DEPAKOTE D.R. TAB PO ONE ×2 (07:45→20:39)
[2022-06-12] MEDS ORDERED: NS 100 ML IV 100 ML ONE (07:47)
[2022-06-12] MEDS: DEPAKOTE D.R. TAB PO SCH ×2 (08:23→21:31)
[2022-06-12] MEDS: NYSTATIN SUSP PO SCH ×4 (08:23→21:31)
[2022-06-12] MEDS: MERREM VIAL 1 G in NS 100 ML IV 100 ML IV SCH ×2 (08:23→20:50)
[2022-06-12] MEDS: ZyPREXA TAB 5 MG PO SCH (08:24)
[2022-06-12] MEDS: ZOLOFT PO SCH (08:24)
[2022-06-12] MEDS: VIBRAMYCIN 100 MG in D5W 250 ML IV 250 ML IV SCH ×2 (08:24→21:31)
[2022-06-12] MEDS: PROTONIX INJ 40 MG VIAL IVP SCH ×2 (08:24→20:48)
[2022-06-12] MEDS ORDERED: SALINE 3% 15 ML NEB TX ONE (09:01)
[2022-06-12] MEDS: XOPENEX 1.25 MG/3 ML NEBULE NEB SCH ×2 (12:07→16:09)
--- NOTE | 2022-06-12 13:08 | PCM.PROG ---
Progress Note Progress Note for Day of Date of Exam: 06/12/22 Subjective Subjective: The patient is alert active this morning. His urine culture is negative, his blood culture is negative however his wound culture has grown out MRSA. It is sensitive to tetracycline with MARLO less than 4 and Bactrim. His Levaquin was stopped yesterday and Vibramycin was added. I will add Bactrim DS today twice daily for better coverage of the MRSA I am concerned about his slightly increased white blood cell count compared to yesterday. We will keep him 1 more day and plan on discharging back to [facility] tomorrow morning. He is also having increased chest congestion so I will order jet nebs only with Xopenex this morning Past Medical Family Social History Allergies: Allergies No Known Drug Allergies Allergy (Verified 03/03/22 17:00) Review of Systems ROS: No change since H&P Vital Signs and I&O's Vital Signs: Temperature 97.8 F Pulse Rate 86 Respiratory Rate 29 Blood Pressure [Right Arm] 109/57 Blood Pressure 99/55 O2 Sat by Pulse Oximetry 100 Intake and Output: Intake & Output 06/10/22 06/11/22 06/12/22 06/13/22 11:59 11:59 11:59 11:59 Intake Total 3039 / 3039 3571 / 3571 3556 / 3556 Output Total 1275 / 1275 950 / 950 1550 / 1550 Balance 1764 / 1764 2621 / 2621 2005 Physical Exam Oriented: Not Oriented Eyes: Normal Ear: Normal Nose: Normal Throat: Normal Respiratory: Right, Left and Rhonchi Cardiovascular: Normal : Normal Auscultation: Bowel Sounds: Normal Tenderness: Normal Skin: Decreased Turgur and Wound Musculoskeletal: Normal Psychiatric: Other Mood Description: Labile Affect: Flat Speech Pattern: Aphasic Laboratory and Diagnostics Result Diagrams: 06/12/22 05:37 06/12/22 05:37 Labs: 06/12/22 09:10 Sputum - Expectorated Sputum - Final 06/09/22 11:47 Blood Blood Culture - Preliminary 06/09/22 12:05 Blood Blood Culture - Preliminary 06/09/22 12:15 Urine,Catheterized Urine Culture - Final 06/09/22 11:50 Drainage Wound Culture - Final Methicillin Resis Staph Aureus 06/09/22 11:50 Drainage Wound Culture - Final Methicillin Resis Staph Aureus Laboratory WBC 20.4 X10^3/uL (3.6-10.0) H 06/12/22 05:37 RBC 4.25 X10^6/uL (4.7-6.0) L 06/12/22 05:37 Hgb 12.5 g/dL (13.5-18.0) L 06/12/22 05:37 Hct 38.2 % (42.0-54.0) L 06/12/22 05:37 MCV 89.8 fL (80.0-100.0) 06/12/22 05:37 MCH 29.5 pg (27.0-34.0) 06/12/22 05:37 MCHC 32.9 g/dL (33.0-35.0) L 06/12/22 05:37 RDW 13.4 % (11.6-16.5) 06/12/22 05:37 Plt Count 423 X10^3/uL (150.0-450.0) 06/12/22 05:37 Plt Count Comment Increased (ADEQUATE) 06/09/22 12:05 MPV 8.4 fL (7.4-11.0) 06/12/22 05:37 Neut % (Auto) 72.1 % (42.0-75.0) 06/12/22 05:37 Lymph % (Auto) 13.4 % (21.0-51.0) L 06/12/22 05:37 [place] % (Auto) 11.6 % (0.0-13.0) 06/12/22 05:37 Eos % (Auto) 1.9 % (0.9-2.9) 06/12/22 05:37 Baso % (Auto) 1.0 % (0.2-1.0) 06/12/22 05:37 Neut # (Auto) 14.7 x10^3/uL (2.2-4.8) H 06/12/22 05:37 Lymph # (Auto) 2.7 X10^3/uL (1.3-2.9) 06/12/22 05:37 [place] # (Auto) 2.4 x10^3/uL (0.3-0.8) H 06/12/22 05:37 Eos # (Auto) 0.4 x10^3/uL (0.0-0.2) H 06/12/22 05:37 Baso # (Auto) 0.2 X10^3/uL (0.0-0.1) H 06/12/22 05:37 Absolute Nucleated RBC 0.0 /100WBC 06/12/22 05:37 Total Counted 100 06/09/22 12:05 Neutrophils % (Manual) 81 % (39-76) H 06/09/22 12:05 Band Neutrophils % 3 % (0-10) 06/09/22 12:05 Lymphocytes % (Manual) 10 % (13-43) L 06/09/22 12:05 Monocytes % (Manual) 5 % (4-9) 06/09/22 12:05 Eosinophils % (Manual) 1 % (0-6) 06/09/22 12:05 Plt Morphology Comment Normal (NORMAL) 06/09/22 12:05 RBC Morphology Normal (NORMAL) 06/09/22 12:05 APTT 77.6 SECONDS (22.9-36.5) H 06/12/22 05:37 PTT Comment - 06/12/22 05:37 Sodium 146 mmol/L (136-145) H 06/12/22 05:37 Corrected Sodium 147 mmol/L (136-145) H 06/12/22 05:37 Potassium 4.4 mmol/L (3.5-5.1) 06/12/22 05:37 Chloride 112 mmol/L (98-107) H 06/12/22 05:37 Carbon Dioxide 25.1 mmol/L (21-32) 06/12/22 05:37 BUN 36 mg/dL (7-18) H 06/12/22 05:37 Creatinine 1.30 mg/dL (0.70-1.30) 06/12/22 05:37 Est GFR (MDRD) Af Amer > 60 (>60) 06/12/22 05:37 Est GFR (MDRD) Non-Af 57 (>60) L 06/12/22 05:37 Glucose 124 mg/dL (65-99) H 06/12/22 05:37 Lactic Acid 1.9 mmol/L (0.4-2.0) 06/09/22 12:05 Calcium 8.5 mg/dL (8.5-10.1) 06/12/22 05:37 Corrected Calcium 10.3 mg/dL (8.5-10.1) H 06/12/22 05:37 Total Bilirubin 1.10 mg/dL (0.2-1.0) H 06/12/22 05:37 AST 42 Units/L (15-37) H 06/12/22 05:37 ALT 32 Units/L (12-78) 06/12/22 05:37 Alkaline Phosphatase 162 Units/L (46-116) H 06/12/22 05:37 Creatine Kinase 777 Units/L (39-308) H 06/10/22 04:14 Troponin I High Sens 36.8 ng/L (4.0-60.0) 06/11/22 20:40 C-Reactive Protein 176.50 mg/L (0-3.0) H 06/10/22 04:14 B-Natriuretic Peptide 52.8 pg/mL (0-79) 06/10/22 04:14 Total Protein 6.1 g/dL (6.4-8.2) L 06/12/22 05:37 Albumin 1.8 g/dL (3.4-5.0) L 06/12/22 05:37 Globulin 4.3 g/dL (2.5-4.5) 06/12/22 05:37 Albumin/Globulin Ratio 0.4 Ratio (1.1-2.1) L 06/12/22 05:37 Specimen Type Catherized urine 06/09/22 12:15 Urine Color Valerie (YELLOW) 06/09/22 12:15 Urine Appearance Slightly hazy (CLEAR) 06/09/22 12:15 Urine pH 5.0 (5.0 - 8.0) 06/09/22 12:15 Ur Specific [place] 1.025 (1.000-1.030) 06/09/22 12:15 Urine Protein 2+ (NEGATIVE) 06/09/22 12:15 Urine Glucose (UA) Negative (NEGATIVE) 06/09/22 12:15 Urine Ketones 1+ (NEGATIVE) 06/09/22 12:15 Urine Blood 1+ (NEGATIVE) 06/09/22 12:15 Urine Nitrite Negative (NEGATIVE) 06/09/22 12:15 Urine Bilirubin 1+ (NEGATIVE) 06/09/22 12:15 Urine Urobilinogen 1+ (NORMAL) 06/09/22 12:15 Ur Leukocyte Esterase 1+ (NEGATIVE) 06/09/22 12:15 Urine RBC 0-2 /HPF (0-3) 06/09/22 12:15 Urine WBC 3-5 /HPF (0-5) 06/09/22 12:15 Ur Squamous Epith Cells Few /HPF (NEGATIVE) 06/09/22 12:15 Amorphous Sediment 1+ /HPF (NEGATIVE) 06/09/22 12:15 Urine Bacteria 1+ /HPF (NEGATIVE) 06/09/22 12:15 Hyaline Casts Moderate /LPF (NEGATIVE) 06/09/22 12:15 Ur Culture Indicated? Yes/culture set up 06/09/22 12:15 Valproic Acid 32.8 ug/mL (50-100) L 06/09/22 12:05 SARS-CoV-2 (PCR) Negative (NEGATIVE) 06/09/22 12:20 Influenza Type A (PCR) Negative (NEGATIVE) 06/09/22 12:20 Influenza Type B (PCR) Negative (NEGATIVE) 06/09/22 12:20 RSV (PCR) Negative (NEGATIVE) 06/09/22 12:20 Plan (1) Left lower lobe pneumonia: Status: Acute Plan: Continue meropenem and DC Levaquin today as the patient has intermediate resistance from MRSA on the wound culture. Renally dosed per pharmacy. Follow-up sputum and blood cultures when available. I am adding doxycycline 100 mg IV every 12 hours. Today I am also adding Bactrim DS because of his wound culture from the MRSA but it should also help cover his pneumonia as well. (2) Hypotension: Status: Acute Plan: Taper off Levophed drip per protocol. Try to maintain blood pressure 110/70. (3) Urinary tract infection: Status: Acute Plan: Continue IV meropenem and IV Vibramycin. Follow-up with urine culture and sensitivity when available. (4) Abnormal EKG: Status: Acute Plan: Consult cardiology, Dr. Alexander tomorrow when he is available. (5) Cardiac enzymes elevated: Status: Acute Plan: I will DC the heparin drip this morning (6) Leukocytosis: Status: Acute Plan: Continue IV Merrem and discontinue Levaquin and I will start IV Vibramycin. (7) Altered mental status: Status: Acute Qualifiers: Altered mental status type: transient alteration of awareness Qualified Code(s): R40.4 - Transient alteration of awareness Narrative Support Text: Patient is altered mental status has resolved and he is back at his normal baseline in which she is also cognitively impaired from Alzheimer's dementia. Plan: Monitor for improvement. 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 (9) COPD (chronic obstructive pulmonary disease): Status: Acute (10) Diabetes mellitus type 2 in nonobese: Status: Acute Plan: Sliding scale regular insulin per protocol. (11) Coronary artery disease: Status: Acute Plan: I will consult Dr. Alexander, cardiology when he is available to [place]. (12) History of CVA (cerebrovascular accident): Status: Acute (13) Dyslipidemia: Status: Acute (14) GERD (gastroesophageal reflux disease): Status: Acute (15) History of essential hypertension: Status: Acute Plan: Monitor blood pressure/heart rate. (16) Arthritis: Status: Acute (17) Cognitive communication deficit: Status: Acute (18) BPH (benign prostatic hyperplasia): Status: Acute (19) Vertigo: Status: Active
[2022-06-12] MEDS: BACTRIM DS TAB PO SCH ×2 (14:14→21:31)
[2022-06-12] MEDS ORDERED: DEPAKOTE D.R. TAB PO SCH (15:00)
[2022-06-12] MEDS ORDERED: FLOMAX PO SCH (21:00)
[2022-06-12] MEDS ORDERED: ARICEPT TAB 5 MG PO SCH (21:00)
[2022-06-13] MEDS: XOPENEX 1.25 MG/3 ML NEBULE NEB SCH ×3 (00:42→08:14)
[2022-06-13 05:35] LABS: BASOPHILS # (AUTO) 0.1 X10^3/uL (0.0-0.1); BASOPHILS % (AUTO) 0.4 % (0.2-1.0); EOSINOPHILS # (AUTO) 0.1 x10^3/uL (0.0-0.2); EOSINOPHILS % (AUTO) 0.3 % (0.9-2.9); HEMOGLOBIN 12.5 g/dL (13.5-18.0); LYMPHOCYTES # (AUTO) 2.4 X10^3/uL (1.3-2.9); LYMPHOCYTES % (AUTO) 10.8 % (21.0-51.0); MEAN CORPUSCULAR HEMOGLOBIN 30.1 pg (27.0-34.0); MEAN CORPUSCULAR HGB CONC 33.8 g/dL (33.0-35.0); MEAN CORPUSCULAR VOLUME 89.3 fL (80.0-100.0); MEAN PLATELET VOLUME 8.6 fL (7.4-11.0); MONOCYTES # (AUTO) 2.8 x10^3/uL (0.3-0.8); MONOCYTES % (AUTO) 12.5 % (0.0-13.0); NEUTROPHILS # (AUTO) 17.2 x10^3/uL (2.2-4.8); RED BLOOD COUNT 4.15 X10^6/uL (4.7-6.0); RED CELL DISTRIBUTION WIDTH 13.1 % (11.6-16.5); WHITE BLOOD COUNT 22.6 X10^3/uL (3.6-10.0)
[2022-06-13 05:46] LABS: ALANINE AMINOTRANSFERASE 40 Units/L (12-78); ALBUMIN 1.8 g/dL (3.4-5.0); ALKALINE PHOSPHATASE 206 Units/L (46-116); ASPARTATE AMINO TRANSFERASE 47 Units/L (15-37); BLOOD UREA NITROGEN 27 mg/dL (7-18); CALCIUM 8.4 mg/dL (8.5-10.1); CARBON DIOXIDE 23.4 mmol/L (21-32); CHLORIDE 107 mmol/L (98-107); COR CA(FOR HYPOALB) 10.2 mg/dL (8.5-10.1); CREATININE 1.26 mg/dL (0.70-1.30); SODIUM 139 mmol/L (136-145); TOTAL PROTEIN 6.2 g/dL (6.4-8.2); eGFR NON BLACK RACES 59 (>60)
[2022-06-13] MEDS: D5W 1,000 ML IV 1,000 ML IV SCH ×2 (05:59→06:21)
[2022-06-13 06:36] LABS: PLATELET MORPHOLOGY COMMENT NORMAL (NORMAL)
[2022-06-13 13:26] VITALS: BP 119/58
[2022-06-13] MEDS ORDERED: CHECK PATCH XX SCH (21:00)
== END 2022-06-13 12:45 | DRG 194 ==
LOC: ICU → OBSVTOIN 11:05
PROVIDERS: ADMIT Family Medicine; ATTEND Family Medicine
DX: E11.65 Type 2 diabetes mellitus with hyperglycemia; F02.81 Dementia in other diseases classified elsewhere, unspecified severity, with behavioral disturbance; R41.841 Cognitive communication deficit; Z86.73 Personal history of transient ischemic attack (TIA), and cerebral infarction without residual deficits; Z86.79 Personal history of other diseases of the circulatory system; L89.322 Pressure ulcer of left buttock, stage 2; J44.9 Chronic obstructive pulmonary disease, unspecified; R40.4 Transient alteration of awareness; Z20.822 Contact with and (suspected) exposure to COVID-19; B95.62 Methicillin resistant Staphylococcus aureus infection as the cause of diseases classified elsewhere; R74.8 Abnormal levels of other serum enzymes; I95.89 Other hypotension; R77.8 Other specified abnormalities of plasma proteins; J18.8 Other pneumonia, unspecified organism; R79.1 Abnormal coagulation profile; N39.0 Urinary tract infection, site not specified; E87.0 Hyperosmolality and hypernatremia; G30.8 Other Alzheimer's disease; R79.82 Elevated C-reactive protein (CRP); N40.0 Benign prostatic hyperplasia without lower urinary tract symptoms; E86.0 Dehydration; M19.90 Unspecified osteoarthritis, unspecified site; Z66 Do not resuscitate; E78.2 Mixed hyperlipidemia; I25.10 Atherosclerotic heart disease of native coronary artery without angina pectoris; K21.9 Gastro-esophageal reflux disease without esophagitis; R94.31 Abnormal electrocardiogram [ECG] [EKG]